=== PATIENT | female | born 1945 | race Caucasian/White ===

== ENCOUNTER 2018-04-24 11:12 | Day surgery (SDC) | payer MEDICARE, OTHER, SELFPAY ==
--- NOTE | 2018-04-24 13:23 | SUR.OPER ---
Supine on eye stretcher, head on extension cradle secured with tape. Arms tucked at sides with blanket. Pillow under knees.
[2018-04-24] MEDS: LIDOCAINE JELLY 2% 5 ML 1 APPLIC TOP (13:26)
[2018-04-24] MEDS: TRIAMCINOLONE 50 MG/5 ML VIAL INJ (13:26)
[2018-04-24] MEDS: MOXIFLOXACIN OPHTH DROPS 3 ML BOTTLE 2 DROPS INJ (13:26)
[2018-04-24] MEDS: CHONDROIDTIN/SOD HYALURONATE 1.05 ML SYRINGE INTRAOCULA (13:26)
[2018-04-24] MEDS: TETRACAINE 0.5% OPHTH DROPS 15 ML 2 DROPS EYE-LEFT (13:27)
[2018-04-24] MEDS: PHENYLEPHRINE/LIDOCAINE 3ML VIAL (OR) EYE-OP (13:27)
[2018-04-24] MEDS: BALANCED SALT IRRIG SOLN NO.2 500 ML, EPINEPHrine 1 MG IRR (13:27)
--- NOTE | 2018-04-24 13:33 | P.OP_ITS ---
Operative Date/Time/Diagnoses - Pre-op diagnosis: Cataract Left eye Post-op diagnosis: same Procedure & Clinicians Surgeon: Franko Cruz Anesthesia Type: MAC +/- and Sedation Operative Notes Procedure in detail: Patient brought to the operating suite. Tetracaine drops placed in the left eye. Patient was prepped and draped in sterile manner. Wire lid speculum was placed in the eye. Betadine drops were placed on the eye. This was irrigated. Lidocaine jelly was placed on the eye. A paracentesis port was created with a side-port blade. 0.1 mL 1% preservative free lidocaine was injected into the anterior chamber. The anterior chamber was deepened with viscoelastic. 2.6 mm keratome was used to create a temporal clear corneal incision. Cystotome and Utrata forceps were used to create continuous tear capsulorrhexis. Balanced salt solution was used to hydro dissect the nucleus. The phacoemulsification handpiece was inserted and the nucleus was removed using the stop and chop technique. The irrigation aspiration handpiece was inserted and the remaining cortex was removed. Anterior chamber was deepened with viscoelastic. An Martinez ZCB00 intraocular lens with a power of 24.5 was injected into the capsular bag. Irrigation aspiration handpiece was inserted and the remaining viscoelastic was removed. Incision was hydrated with balanced salt solution and found to be leak free with pressure with Weck- Charmaine sponges. 0.1 mL Vigamox injected anterior chamber. 0.3 mL Kenalog 10 mg was injected subconjunctivally. Lid speculum was removed. The patient left the operating room in excellent condition. Complications: none Condition: stable Disposition: same day surgery
--- NOTE | 2018-04-24 13:33 | PM.PREOP ---
Pre-operative Note Interval Note Pre-op Check: History & Physical Reviewed by Physician
[2018-04-24 13:34] VITALS: BP 102/60; PULSE 63; RESP 16; TEMP 36.4; O2SAT 99
[2018-04-24 13:46] VITALS: TEMP 36.3
[2018-04-24] MEDS: ACETAMINOPHEN 325 MG TABLET 650 MG PO (13:46)
[2018-04-24 14:03] VITALS: BP 102/58; PULSE 61; RESP 16; TEMP 36.2; O2SAT 97
== END 2018-04-24 14:07 | disposition home or self-care (01) ==
LOC: OR 11:14
PROVIDERS: Family Provider Family Medicine; PCP Family Medicine; Visit Provider Ophthalmology
DX: H25.12 Age-related nuclear cataract, left eye (principal); I10 Essential (primary) hypertension; F41.9 Anxiety disorder, unspecified
CPT/HCPCS: J0171; J2250; J3010; J3301

== ENCOUNTER 2018-12-07 08:51 | Day surgery (SDC) | payer MEDICARE, OTHER, SELFPAY ==
[2018-12-07] VITALS (7 sets, daily range): BP systolic 105–120; BP diastolic 56–65; PULSE 65–73; RESP 15–18; TEMP 36.2–36.9; O2SAT 88–97; BMI 17.8
--- NOTE | 2018-12-07 | PATH_ITS ---
[facility] Accession Number: [id number] . 01 Material submitted: . PART A: ANTRAL BIOPSY PART B: GE JUNCTION BIOPSY . 02 Diagnosis: A. Antral, Biopsy: Changes consistent with reactive gastropathy, negative for atypia. Negative for evidence of Helicobacter on H/E stain. Negative for intestinal metaplasia. Negative for dysplasia and malignancy. . B. Gastroesophageal Junction, Biopsy: Fragments of oxyntic gastric mucosa with no squamous epithelium identified. Mild chronic inflammation present with nonspecific reactive epithelial changes, but negative for dysplasia and malignancy. Negative for specialized metaplasia of Zavaleta's-type esophagus. Small foci of pancreatic acinar metaplasia. [facility]/12/10/2018 . 02 Electronically signed: . Eloy Brooke MD, Pathologist NPI- [id number] . 01 Gross description: . Received two formalin-filled containers, both labeled with the patient's name: . A. In a container labeled antral, are three 0.1-0.2 cm portions of tissue, entirely submitted in cassette A. B. In a container labeled GE junction, are two 0.1 cm portions of tissue, entirely submitted in cassette B. ([id number]) /FRR . 02 Pathologist provided ICD-10: K31.89 . 02 CPT . 459655, 901015 Performed at: 01 [facility] [address], [place], [place] [id number] MD Omari Strickland MD Phone: [phone] Performed at: 02 [facility] [address] [place], [place] [id number] MD Jessica Hanna MD Phone: [phone]
[2018-12-07] MEDS: SODIUM CHLORIDE 0.9% 1,000 ML 200 ML IV (10:25)
--- NOTE | 2018-12-07 12:32 | PM.HP.1 ---
History of Present Illness Date Patient Seen: 12/07/18 Time Patient Seen: 12:19 Chief complaint: EGD [id number] Narrative: Patient is a woman with longstanding medication for reflux but she really does not have a lot of symptoms other than belching. She has had some inflammation of her laryngeal area in question has been raised whether this could be due to reflux. She is brought for an EGD. Patient History Surgical History History of lumpectomy History of tonsillectomy Status post tubal ligation Family & Social History Family History: Reviewed 12/07/18 by Xu Gomez MD Social History: household members none Tobacco & Substance use: Smoking Status Never smoker alcohol intake current Meds Home Medications Medication Instructions Recorded Confirmed Type [CUCURMIN] 1 tab PO DAILY #0 01/16/17 12/07/18 History [KELP] 1 tab PO Q DAY #0 01/16/17 12/07/18 History [METABALANCE] 1 tab PO Q DAY #0 01/16/17 12/07/18 History calcium citrate-vitamin D3 1 tab PO DAILY #0 01/16/17 12/07/18 History [Citracal + D Maximum] cholecalciferol (vitamin D3) 10,000 iu PO Q DAY #0 01/16/17 12/07/18 History [Ca MG D3 K1 K2 ] 1 tab PO DAILY #0 05/22/17 12/07/18 History hydroxyzine HCl 1 tab PO QHSP PRN 04/24/18 12/07/18 History sertraline 50 mg PO QDAY 04/24/18 12/07/18 History omeprazole 20 mg DAILY 12/07/18 12/07/18 History Allergies Allergy/AdvReac Type Severity Reaction Status Date / Time levofloxacin Allergy Intermediate RASH, LIP Verified 04/24/18 11:36 SWELLING benzethonium chloride Allergy Mild RASH Verified 04/24/18 11:36 metronidazole Allergy Unknown Verified 04/24/18 11:36 chlorpheniramine AdvReac Mild AGITATED Verified 04/24/18 11:36 paroxetine AdvReac Mild TREMORS Verified 04/24/18 11:36 Sulfa (Sulfonamide AdvReac Mild ANXIETY Verified 04/24/18 11:36 Antibiotics) trimethoprim AdvReac Mild ANXIETY Verified 04/24/18 11:36 zolpidem AdvReac Mild DEPRESSION Verified 04/24/18 11:36 (DOSE SENSITIVE) Review of Systems Review of Systems All systems reviewed & are unremarkable except as noted in HPI and below Exam Vital Signs (past 8 hours): - 12/07/18 10:13 Temperature 97.2 F L Pulse Rate 68 Respiratory Rate 15 Blood Pressure 120/65 Pulse Oximetry 96 Oxygen Delivery Method Room Air Narrative Exam Narrative: Then cooperative woman in no apparent distress. Eyes nonicteric. Lungs clear to auscultation no rales or rhonchi. Heart regular rate and rhythm without murmur gallop. Abdomen is scaphoid soft nontender without mass. Alert oriented x3. Assessment & Plan Plan: Assessment/Plan Narrative: Patient for an EGD. I have discussed the procedure. Will proceed. All questions answered.
[2018-12-07] MEDS: fentaNYL 250 MCG/5 ML INJ IV (12:44)
[2018-12-07] MEDS: MIDAZOLAM 5 MG/5 ML VIAL IV (12:45)
--- NOTE | 2018-12-07 12:52 | PM.OP.ENDO ---
Operative Date/Time/Diagnoses Date of procedure: 12/07/18 Time of procedure: 12:52 Pre-op diagnosis: S history of possible reflux. Laryngitis. Post-op diagnosis: same Procedure & Clinicians Study performed: EGD with cold biopsy Same procedure as scheduled: Yes Indications: Diagnostic Surgeon: Xu Gomez Procedure Notes SCOAP/Timeout: Performed Procedure in detail: Patient placed in left lateral decubitus position underwent IV sedation directed by the surgeon consisting of fentanyl and Versed. Topical anesthetic had been applied to the oropharynx. A bite block was inserted. The scope was inserted through it and into the esophagus the area of the vocal cords and visible larynx were normal in appearance. I passed the scope into the esophagus which was unremarkable. GE junction approximately 40 is 1 cm. The stomach insufflated well. There was some minor inflammation on 1 lip of the pyloric channel in the antral side. Insure was normal the remainder of the antrum was unremarkable. The body was unremarkable. I passed the scope out through into the duodenum. The duodenum was normal the 4th part. The scope was brought back into the stomach and retroflexed. The proximal stomach was unremarkable. The scope was straightened and biopsies were taken in the antrum. I then broke as evacuated air and did biopsies at the GE junction due to her long treatment of reflux disease. I really did not see any evidence of inflammation or Zavaleta's esophagus however. The scope was removed. Patient tolerated the procedure well. Scope withdrawal time: Not applicable Sedation minutes: 13 Findings: other findings (Normal examination.) Specimen(s): other (Antrum. GE junction.) Plan for aftercare: Will contact her regarding pathology. Follow up: weeks Disposition: PACU
[2018-12-07] MEDS: LIDOCAINE 4% SOLN 50 ML 20 ML TOP (12:59)
[2018-12-07] MEDS: TETRACAINE/BENZOCAINE/BUTAMBEN (CETACAINE) BOTTLE 1 SPRAY TOP (12:59)
== END 2018-12-07 13:35 | disposition home or self-care (01) ==
PROVIDERS: PCP Family Medicine; Visit Provider Specialist
PROC: 0DJ08ZZ Inspection of Upper Intestinal Tract, Via Natural or Artificial Opening Endoscopic (ICD-10-PCS; CPT 43239; principal; 2018-12-07 11:45)
DX: K31.89 Other diseases of stomach and duodenum (principal); Z87.19 Personal history of other diseases of the digestive system
CPT/HCPCS: 43239; 88305; 99152; J2250; J3010

== ENCOUNTER → 2019-02-25 14:43 | Outpatient (CLI) | payer MEDICARE, OTHER, SELFPAY ==
--- NOTE | 2019-02-25 | DI.MG.S_ITS ---
BILATERAL DIGITAL SCREENING MAMMOGRAM 3D/2D WITH CAD POST LUMPECTOMY: 02/25/2019 CLINICAL: Routine screening. Personal history of right breast cancer. Comparison is made to exams dated: 01/23/2017 mammogram, 01/05/2016 mammogram, and 07/29/2014 mammogram - [facility]. The tissue of both breasts is heterogeneously dense. This may lower the sensitivity of mammography. Current study was also evaluated with a Computer Aided Detection (CAD) system. There are benign post operative findings in the right breast. No significant masses, calcifications, or other findings are seen in either breast. There has been no significant interval change. IMPRESSION: There is no mammographic evidence of malignancy. A 1 year screening mammogram is recommended. This exam was interpreted at Station ID: [id number]. NOTE: For mammograms, a report in lay terms will be sent to the patient. Approximately 15% of breast malignancies will not be visualized mammographically. In the management of a palpable breast mass, a negative mammogram must not discourage biopsy of a clinically suspicious lesion. Electronically Signed By: Nas alicia/van:02/25/2019 17:33:42 letter sent: Normal Exam ACR BI-RADS Category 2: Benign Finding(s) 3342F
== END ==
PROVIDERS: PCP Family Medicine; Visit Provider Family Medicine
DX: Z12.31 Encounter for screening mammogram for malignant neoplasm of breast (principal); Z85.3 Personal history of malignant neoplasm of breast; M85.852 Other specified disorders of bone density and structure, left thigh; Z78.0 Asymptomatic menopausal state
CPT/HCPCS: 77063; 77067; 77080

== ENCOUNTER → 2021-09-21 12:01 | Outpatient (CLI) | payer MEDICARE, OTHER, SELFPAY | PROVIDERS: PCP Family Medicine; Referring Provider Nurse Practitioner Family; Visit Provider Nurse Practitioner Family | DX: M85.851 Other specified disorders of bone density and structure, right thigh (principal); Z78.0 Asymptomatic menopausal state; Z85.3 Personal history of malignant neoplasm of breast | CPT/HCPCS: 77080 ==

== ENCOUNTER → 2021-10-28 12:12 | Outpatient (CLI) | payer MEDICARE, OTHER, SELFPAY ==
--- NOTE | 2021-10-28 | DI.US.S_ITS ---
LIMITED ULTRASOUND OF LEFT BREAST AND AXILLA: 10/28/2021 CLINICAL: Patient returns today to evaluate a focal asymmetry in the left breast. Comparison is made to exams dated: 10/28/2021 mammogram, 02/25/2019 mammogram, 01/23/2017 mammogram, 01/05/2016 mammogram, 07/29/2014 mammogram, and 01/09/2013 mammogram - [facility]. Color flow and real-time ultrasound of the left breast upper outer quadrant and axilla regions were performed. Calvin scale images of the real-time examination were reviewed. No significant abnormalities were seen sonographically in the left axilla. Specifically, no finding to correspond to the patient's axillary tail palpable abnormality. Incidental note made of a stable cystic lesion in the 12:00 position, present on prior remote mammograms. IMPRESSION: NEGATIVE There is no sonographic correlate to the patient's palpable abnormality and no evidence of malignancy. Return to annual mammogram screening schedule is recommended. Findings and recommendations were conveyed to the patient at time of exam. This exam was interpreted at Station ID: [id number]. Electronically Signed By: Sol sky/:10/28/2021 15:10:59 letter sent: Normal Exam Ultrasound BI-RADS: 1 Negative
--- NOTE | 2021-10-28 | DI.MG.S_ITS ---
BILATERAL DIGITAL DIAGNOSTIC MAMMOGRAM 3D/2D POST LUMPECTOMY: 10/28/2021 CLINICAL: Left breast lump. Comparison is made to exams dated: 02/25/2019 mammogram, 01/23/2017 mammogram, and 01/05/2016 mammogram - . The tissue of both breasts is heterogeneously dense. This may lower the sensitivity of mammography. The patient is status post lumpectomy right breast in the superior lateral quadrant. No significant masses, calcifications, or other findings are seen in either breast. Specifically, no finding to correspond to the patient's left breast palpable abnormality. IMPRESSION: INCOMPLETE: NEEDS ADDITIONAL IMAGING EVALUATION There is no abnormality seen in the left breast to correspond with the palpable abnormality in the lateral aspect. Ultrasound is recommended for full evaluation of this area. This was performed immediately following this exam. This exam was interpreted at Station ID: [id number]. NOTE: For mammograms, a report in lay terms will be sent to the patient. Approximately 15% of breast malignancies will not be visualized mammographically. In the management of a palpable breast mass, a negative mammogram must not discourage biopsy of a clinically suspicious lesion. Electronically Signed By: Sol sky/:10/28/2021 14:47:57 ACR BI-RADS Category 0: Incomplete 3340F
== END ==
PROVIDERS: PCP Family Medicine; Referring Provider Family Medicine; Visit Provider Family Medicine
DX: R92.8 Other abnormal and inconclusive findings on diagnostic imaging of breast (principal); N63.31 Unspecified lump in axillary tail of the right breast; N60.02 Solitary cyst of left breast
CPT/HCPCS: 76642; 77066; G0279

== ENCOUNTER → 2022-11-22 13:34 | Outpatient (CLI) | payer MEDICARE, SELFPAY ==
--- NOTE | 2022-11-22 | DI.MG.S_ITS ---
BILATERAL DIGITAL SCREENING MAMMOGRAM 3D/2D WITH CAD POST LUMPECTOMY: 11/22/2022 CLINICAL: Routine screening. Personal history of left breast cancer. Comparison is made to exams dated: 10/28/2021 mammogram, 02/25/2019 mammogram, and 01/23/2017 mammogram - [facility]. Both breasts are heterogeneously dense, which may obscure small masses (category c / 51-75% glandular tissue). Current study was also evaluated with a Computer Aided Detection (CAD) system. There is an asymmetry in the left breast posterior depth superior region seen on the mediolateral oblique view only. No other significant masses, calcifications, or other findings are seen in either breast. IMPRESSION: INCOMPLETE: NEEDS ADDITIONAL IMAGING EVALUATION The asymmetry in the left breast is indeterminate. Additional views with possible ultrasound are recommended. This exam was interpreted at Station ID: [id number]. NOTE: For mammograms, a report in lay terms will be sent to the patient. Approximately 15% of breast malignancies will not be visualized mammographically. In the management of a palpable breast mass, a negative mammogram must not discourage biopsy of a clinically suspicious lesion. Electronically Signed By: Noni ramirez/van:11/22/2022 15:53:49 letter sent: Additional Imaging Needed ACR BI-RADS Category 0: Incomplete 3340F
== END ==
PROVIDERS: PCP Nurse Practitioner Family; Referring Provider Family Medicine; Visit Provider Family Medicine
DX: Z12.31 Encounter for screening mammogram for malignant neoplasm of breast (principal); Z85.3 Personal history of malignant neoplasm of breast
CPT/HCPCS: 77063; 77067

== ENCOUNTER → 2022-12-20 11:50 | Outpatient (CLI) | payer MEDICARE, SELFPAY ==
--- NOTE | 2022-12-20 11:52 | DI.MG.S_ITS ---
UNILATERAL LEFT DIGITAL DIAGNOSTIC MAMMOGRAM 3D/2D WITH ADDITIONAL VIEWS: 12/20/2022 CLINICAL: Additional evaluation requested from prior study. Comparison is made to exams dated: 11/22/2022 mammogram, 10/28/2021 ultrasound, 10/28/2021 mammogram, 02/25/2019 mammogram, 01/23/2017 mammogram, and 01/05/2016 mammogram - [facility]. The left breast is heterogeneously dense, which may obscure small masses (category c / 51-75% glandular tissue). There is a stable benign 1 cm oval lymph node with a circumscribed margin and a single coarse calcification in the left breast at 12 -1 o'clock posterior depth. This is confirmed with additional views. No other significant masses or calcifications are seen in the breast. IMPRESSION: BENIGN There is a benign lymph node in the left breast. This has been stable compared to prior studies dating back to 2015 where it was a little larger, and measured 1.3 cm in size. There is no mammographic evidence of malignancy. Return to annual mammogram screening schedule is recommended. Findings and recommendations were conveyed to the patient at time of exam. This exam was interpreted at Station ID: [id number]. NOTE: For mammograms, a report in lay terms will be sent to the patient. Approximately 15% of breast malignancies will not be visualized mammographically. In the management of a palpable breast mass, a negative mammogram must not discourage biopsy of a clinically suspicious lesion. Electronically Signed By: Sol sky/:12/20/2022 12:40:13 letter sent: Normal Exam ACR BI-RADS Category 2: Benign Finding(s) 3342F
== END ==
PROVIDERS: PCP Nurse Practitioner Family; Referring Provider Nurse Practitioner Family; Visit Provider Nurse Practitioner Family
DX: R92.8 Other abnormal and inconclusive findings on diagnostic imaging of breast (principal)
CPT/HCPCS: 77065; G0279

== ENCOUNTER 2022-12-29 07:06 | Day surgery (SDC) | payer MEDICARE, SELFPAY ==
--- NOTE | 2022-12-29 | PATH_ITS ---
[facility] Accession Number: [id number] No. of containers..01 Tissue . 01 Material submitted: . colon - SPLECNIC FLEXURE POLYP . 01 Diagnosis: Splenic Flexure Polyp: Colonic mucosa with no diagnostic abnormality, consistent with polypoid redundancy. Negative for serrated lesion, dysplasia or malignancy. Additional step sections examined. MRV 01/09/2023 1611 Local . 01 Electronically signed: . Rubén Diggs MD, PhD, Pathologist NPI- [id number] . 01 Gross description: . SPLECNIC FLEXURE POLYP: Received in formalin is 1 fragment(s) of reddy, soft tissue measuring 0.3 x 0.2 x 0.1 cm submitted entirely in 1 cassette(s) /CPE 12/30/2022 0919 Local . 01 Pathologist provided ICD-10: K63.5 . 01 CPT . 170098 Specimen Comment: A courtesy copy of this report has been sent to [phone] Performed at: 01 [facility] [address] [place] [address], [place], [place] [id number] MD Omari Strickland MD Phone: [phone]
[2022-12-29 07:55] VITALS: BP 131/72; PULSE 72; RESP 16; TEMP 35.9; O2SAT 98; BMI 17.7
[2022-12-29] MEDS: LACTATED RINGERS 1,000 ML 150 ML IV (08:01)
--- NOTE | 2022-12-29 08:03 | PM.HP.1 ---
History of Present Illness History of Present Illness Date Patient Seen: 12/29/22 Time Patient Seen: 08:03 Chief complaint: SD Narrative: Court is a 77-year-old woman here for colonoscopy. She had colonoscopy in the past, she thinks roughly 10 years ago, with polyps removed. Her father had colon cancer in his 60s. Patient History Surgical History History of lumpectomy History of tonsillectomy Status post tubal ligation Family & Social History Family History Brother Age: 78 Hypertension Brother Age: 73 Hypertension Mother Hypertension Social History: household members none Tobacco & Substance use: Smoking Status Never smoker alcohol intake current Substance Use Type does not use Meds Home Medications and Allergies Home Medications Medication Instructions Recorded Confirmed Type [CUCURMIN] 1 tab PO DAILY ##0 01/16/17 12/29/22 History calcium citrate 315 mg 1 tab PO DAILY ##0 01/16/17 12/29/22 History calcium-vitamin D3 6.25 mcg (250 unit) tablet (Citracal + Vitamin D Maximum) hydroxyzine HCl 25 mg tablet 1 tab PO QHSP PRN Insomnia 04/24/18 12/29/22 History sertraline 100 mg tablet 50 mg PO QDAY 04/24/18 12/29/22 History Allergies Allergy/AdvReac Type Severity Reaction Status Date / Time levofloxacin Allergy Intermediate RASH, LIP Verified 12/29/22 07:52 SWELLING benzethonium chloride Allergy Mild RASH Verified 12/29/22 07:52 metronidazole Allergy Unknown Verified 12/29/22 07:52 chlorpheniramine AdvReac Mild AGITATED Verified 12/29/22 07:52 paroxetine AdvReac Mild TREMORS Verified 12/29/22 07:52 Sulfa (Sulfonamide AdvReac Mild ANXIETY Verified 12/29/22 07:52 Antibiotics) trimethoprim AdvReac Mild ANXIETY Verified 12/29/22 07:52 zolpidem AdvReac Mild DEPRESSION Verified 12/29/22 07:52 (DOSE SENSITIVE) Exam Vital Signs (past 8 hours): - 12/29/22 07:55 Temperature 96.6 F L Pulse Rate 72 Respiratory Rate 16 Blood Pressure 131/72 Pulse Oximetry 98 Oxygen Delivery Method Room Air Oxygen Delivery Method Room Air Const General: No acute distress Assessment & Plan Assessment and plan (1) Family history of colon cancer: Status: Acute (2) History of colonic polyps: Status: None Plan We reviewed the risks and benefits of colonoscopy due to her history of colon polyps and family history of colon cancer and she would like to proceed. Time Spent With Patient Critical Care time: I spent a total of [] minutes of critical care time on this patient's care today; this time is exclusive of procedural time.
[2022-12-29 08:42] VITALS: BP 95/46; PULSE 54; RESP 13; TEMP 35.8; O2SAT 96
[2022-12-29 08:47] VITALS: BP 90/50; PULSE 54; RESP 14; O2SAT 95
--- NOTE | 2022-12-29 08:48 | PM.OP.COLON ---
Operative Date/Time/Diagnoses Date of procedure: 12/29/22 Time of procedure: 08:49 Pre-op diagnosis: Family history of colon cancer and personal history of colon polyps Post-op diagnosis: same Procedure & Clinicians Study performed: Colonoscopy Same procedure as scheduled: Yes Surgeon: Juan A Walton Procedure Notes Procedure in detail: Surgeon: Juan A Walton MD Anesthesia: Dr. Joseph Procedure: The patient was brought to the endoscopy suite, placed in left lateral decubitus position. The patient was connected to monitoring devices. A time-out was performed. Sedation was administered. Once the patient was adequately sedated, a digital rectal exam was performed and was normal. The scope was then inserted and advanced to the cecum where the appendiceal orifice was identified and photographed. The scope was then slowly withdrawn over greater than 6 minutes. The mucosa was thoroughly inspected. There was a 4 mm polyp at the splenic flexure removed with the Jumbo forceps. No other abnormalities were seen. The scope was retroflexed in the rectum. There were some mild internal hemorrhoids but no other abnormalities. The scope was straightened and removed. The patient was awakened and brought to recovery. Scope withdrawal time: 11 minutes Sedation time: 26 minutes EBL: 5 mL Findings: Splenic flexure polyp 4 mm Post-procedure Disposition: PACU
[2022-12-29 08:52] VITALS: BP 98/57; PULSE 55; RESP 15; O2SAT 96
[2022-12-29 08:56] VITALS: BP 101/63; PULSE 69; RESP 17; TEMP 35.8; O2SAT 94
[2022-12-29 08:59] VITALS: BP 95/53; PULSE 62; RESP 22; O2SAT 96
== END 2022-12-29 09:24 | disposition home or self-care (01) ==
PROVIDERS: PCP Nurse Practitioner Family; Referring Provider Surgery; Visit Provider Surgery
PROC: 0DJD8ZZ Inspection of Lower Intestinal Tract, Via Natural or Artificial Opening Endoscopic (ICD-10-PCS; CPT 45378; principal; 2022-12-29 08:15)
DX: Z12.11 Encounter for screening for malignant neoplasm of colon (principal); Z80.0 Family history of malignant neoplasm of digestive organs; Z86.010 Personal history of colon polyps; K64.8 Other hemorrhoids
CPT/HCPCS: 45378

== ENCOUNTER → 2024-03-18 13:40 | Outpatient (CLI) | payer MEDICARE, SELFPAY ==
--- NOTE | 2024-03-18 | DI.RAD.S_ITS ---
PROCEDURE: XR DEXA AXIAL SKELETON INDICATIONS: disorders of bone density and structure COMPARISON: [facility], CR, XR DEXA AXIAL SKELETON, 09/21/2021, 12:31. FINDINGS: Lumbar Spine: Bone mineral density 0.937 g/cm2, T score -1.0. Left Hip: Bone mineral density 0.657 g/cm2, T score -2.3. Left Femoral Neck: Bone mineral density 0.640 g/cm2, T score -1.9. Right Hip: Bone mineral density 0.68 for g/cm2, T score -2.1. Right Femoral Neck: Bone mineral density 0.640 g/cm2, T score -1.9. Fracture Risk Calculation (when applicable): 10-year fracture risk of a major osteoporotic fracture 11% and of a hip fracture 3%. (T score greater or equal to -1.0 to: NORMAL) (T score from -1.1 to -2.4: OSTEOPENIA) (T score less than or equal to -2.5: OSTEOPOROSIS) IMPRESSION: 1. Osteopenia of the bilateral hips. Follow-up guidelines as follows: Osteoporosis: Consider a repeat DEXA and Vertebral Fracture Assessment (VFA) exam in 2 years or sooner if medically necessary, to reassess this patient's status. Osteopenia: Consider a repeat DEXA in 2-3 years to reassess this patient's status, or if there is a new clinical indication. Normal: Consider a repeat DEXA in 5 years or sooner, or if there is a new clinical indication. Dictated by: Noni Madrigal M.D. on 03/18/2024 at 14:52 Approved by: Noni Madrigal M.D. on 03/18/2024 at 14:53
== END ==
PROVIDERS: PCP Family Medicine; Referring Provider Family Medicine; Visit Provider Family Medicine
DX: M85.851 Other specified disorders of bone density and structure, right thigh (principal); M85.852 Other specified disorders of bone density and structure, left thigh
CPT/HCPCS: 77080